=== PATIENT | male | born 1945 | race Caucasian/White ===

== ENCOUNTER 2021-05-13 17:41 | Emergency (ER) | payer OTHER, MEDICARE, SELFPAY ==
[2021-05-13 17:53] VITALS: BP 169/88; PULSE 88; RESP 18; TEMP 37.1; O2SAT 87; BMI 30.8
--- NOTE | 2021-05-13 18:13 | W.ED.SOB ---
HPI - SOB/Dyspnea General: Chief Complaint: Shortness of Breath/Dyspnea Stated Complaint: LOW 02 (88%), SENT BY PCP Time Seen by Provider: 05/13/21 18:13 History of Present Illness: HPI Narrative: Mr. Leiva is a 75-year-old gentleman with history of hypertension and hyperlipidemia who presents to the emergency department due to shortness of breath and generalized malaise. He likely had Covid approximately 2 years and over the past year has had intermittent episodes of wheezing. 2 weeks ago he had recurrence of symptoms with loss of smell, otherwise typical symptoms including shortness of breath, cough, malaise, and generalized decreased activity. Cough makes it difficult to sleep at night and at times he has to sleep propped up on pillows to prevent cough however he denies peripheral edema. He felt worse until 7 to 10 days ago and then improved however had worse again over the past day. He notes shortness of breath which is moderate in intensity and worse with exertion. Other symptoms continue. No other specific changes in health, exacerbating, or relieving factors identified. Of note the patient did use ivermectin for 3 days at onset of symptoms. Review of Systems General: Reports: 10 or more systems reviewed and unremarkable except in HPI and below PFSH ED PFSH: Medical History Hypoxia Social History Smoking and tobacco status: former smoker Physical Exam Narrative: EXAM NARRATIVE: GENERAL/CONSTITUTIONAL -ill-appearing Eyes - PERRL, no conjunctival injection ENMT - Atraumatic external nose and ears. Moist mucous membranes NECK - supple. trachea midline CARDIOVASCULAR - regular rate and rhythm. Normal peripheral perfusion RESPIRATORY -coarse to auscultation bilaterally. Increased work of breathing which increases with tachypnea and accessory muscle use when not on supplemental oxygen. ABDOMEN/GI - Nontender/Nondistended. No tenderness to percussion or evidence of peritonitis MSK - Extremities without obvious deformity or tenderness to palpation SKIN - Warm, Dry NEURO - alert and appropriately oriented. Moves all extremities equally. Course ED course: - Patient was seen and evaluated by me at bedside - Patient placed on cardiac monitors, IV access obtained - Initial evaluation notable for somewhat ill appearance as noted above -Symptom treatment ordered - Labs notable for mild leukocytosis. Metabolic panel with likely evidence of mild dehydration. Procalcitonin is negative. - Imaging notable for nonspecific scattered interstitial densities likely representing based on my interpretation infection - Upon serial reexamination after treatment the patient was mildly improved. He qualified for home oxygen - Based on patient history, evaluation, labs, and imaging as interpreted the most likely cause of the patient's condition is over 19 or other viral pneumonia with new hypoxemia, will send send out for PCR given likely false negative rapid test - The results of ED evaluation were discussed with the patient including prescriptions and/or symptomatic cares (if applicable) including appropriate and responsible use, followup plan, and return precautions. The patient verbalized understanding and felt safe for discharge. - Patient discharged in satisfactory condition. Vital Signs: Vital signs: Vital Signs Temperature 98.7 F 05/13/21 17:53 Pulse Rate 88 05/13/21 22:55 Respiratory Rate 18 05/13/21 17:53 Blood Pressure 169/88 05/13/21 17:53 Pulse Oximetry 91 05/13/21 22:55 MDM - SOB/Dyspnea Medical Records: Attestation: I reviewed the patient's medical records. Lab Data: Attestation: I reviewed the patient's lab results. Labs: Lab Results 05/13/21 05/13/21 05/13/21 18:43 18:43 18:43 WBC 11.3 10^3/uL H 10 ^3/uL (4.0-10.0) RBC 4.89 10^6/uL 10^6 /uL (4.1-5.3) Hgb 13.7 g/dL g/dL (11.7-16.6) Hct 41.3 % L % (42.0-52.0) MCV 84.5 fl fl (80-94) MCH 28.0 pg pg (28.0-34.0) MCHC 33.2 g/dL g/dL (30.0-36.0) RDW 13.1 % % (12.1-15.1) Plt Count 273 10^3/cmm 10^3 /cmm (130-400) MPV 10.3 fL fL (7.4-10.4) Neut % (Auto) 76.8 % % Lymph % (Auto) 8.9 % % [place] % (Auto) 11.8 % % Eos % (Auto) 1.0 % % Baso % (Auto) 0.2 % % Neut # (Auto) 8.70 10^3/uL H 10 ^3/uL (1.8-7.7) Lymph # (Auto) 1.0 10^3/uL 10^3/ uL (0.8-4.8) [place] # (Auto) 1.3 10^3/uL H 10^ 3/uL (0.2-0.9) Eos # (Auto) 0.1 10^3/uL 10^3/ uL (0.0-0.8) Baso # (Auto) 0.0 10^3/uL 10^3/ uL (0.0-0.1) Nucleated RBC % (a uto) 0 % % Nucleated RBCs # 0.0 /100WBC /100W BC Sodium 142 mmol/L mmol/L (136-145) Potassium 4.0 mmol/L mmol/L (3.5-5.1) Chloride 104 mmol/L mmol/L (98-107) Carbon Dioxide 21 mmol/L L mmol/ L (22-29) Anion Gap 21.0 H (5-19) BUN 10 mg/dL mg/dL (8-23) Creatinine 0.6 mg/dL L mg/dL (0.7-1.2) GFR Calculation Not Reportable Glucose 94 mg/dL mg/dL (65-115) Calculated Osmolal ity 293 mOsm/kg mOsm/ kg (285-295) Lactic Acid Calcium 8.2 mg/dL L mg/dL (8.5-10.5) Magnesium 2.0 mg/dL mg/dL (1.7-2.3) Total Bilirubin 0.4 mg/dL mg/dL (0.15-1.2) AST 24 U/L U/L (0-40) ALT 18 U/L U/L (0-41) Alkaline Phosphata se 104 IU/L IU/L (40-130) C-Reactive Protein 117.8 mg/L H mg/L (0.0-4.9) NT-Pro-B Natriuret Pep 324 pg/mL pg/mL (0-450) Total Protein 7.5 g/dL g/dL (6.6-8.7) Albumin 3.3 g/dL L g/dL (3.5-5.2) Globulin 4.2 g/dL g/dL (1.3-4.6) Procalcitonin 0.06 ng/mL ng/mL (0-0.5) Coronavirus 229E ( PCR) SARS-CoV-2 (PCR) SARS-CoV-2 Ag (Rap id) Negative (Negative) 05/13/21 05/13/21 19:22 22:50 WBC RBC Hgb Hct MCV MCH MCHC RDW Plt Count MPV Neut % (Auto) Lymph % (Auto) [place] % (Auto) Eos % (Auto) Baso % (Auto) Neut # (Auto) Lymph # (Auto) [place] # (Auto) Eos # (Auto) Baso # (Auto) Nucleated RBC % (a uto) Nucleated RBCs # Sodium Potassium Chloride Carbon Dioxide Anion Gap BUN Creatinine GFR Calculation Glucose Calculated Osmolal ity Lactic Acid 0.9 mmol/L mmol/L (0.5-2.2) Calcium Magnesium Total Bilirubin AST ALT Alkaline Phosphata se C-Reactive Protein NT-Pro-B Natriuret Pep Total Protein Albumin Globulin Procalcitonin Coronavirus 229E ( PCR) Not detected (NOT DETECT) SARS-CoV-2 (PCR) Not detected (NOT DETECT) SARS-CoV-2 Ag (Rap id) EKG Data^: EKG 2: Attestation: I personally reviewed and interpreted this EKG as follows: EKG Interpretation Date: 05/13/21 EKG interpretation time: 18:53 Interpretation: Twelve-lead EKG shows an irregular rhythm at a rate of 89. No NM interval, QRS duration 86, QTc 398. Normal axis. Interpretation: Sinus rhythm. Nonspecific ST segment abnormality Discharge Plan Discharge Patient Disposition: Home Clinical Impression: Pneumonia, viral, Hypoxia, COVID-19 Condition: Stable Prescriptions: No Action No Known Home Medications RF: 0 Discharge Orders: Discharge ED (Routine); Ordered 05/13/21 Ordered By: Cash Garcia Other Ambulatory Orders: DME: Oxygen (Order) Location: None Selected Ordered By: Cash Garcia DME: Oxygen (Order) Location: None Selected Ordered By: Cash Garcia Referrals: Arnold Elliott DO [Primary Care Provider] - Discharge Diet: Usual diet Discharge Activity: Increase activity as tolerated Patient Instructions: Using Oxygen at Home (ED), COVID-19 (Coronavirus Disease 2019) (ED) Activity Restrictions/Additional Instructions: Thank you for visiting the emergency department. You were seen and evaluated for shortness of breath, cough, and other associated symptoms. The exact cause of your symptoms is unclear though is likely related to COVID-19 or other viral pneumonia. I would expect that you will begin to improve in the next few days. You will be sent home with home oxygen. As discussed, please use pulse oximeter and return if you feel significant worsening or, despite home oxygen, your oxygen levels are less than 90%. Please follow-up with your primary care provider. Return to the emergency department for anything that you are concerned about and feel needs emergency department evaluation. Coding Level of Care Code ED Client Support Manager for Omar Roth
--- NOTE | 2021-05-13 18:14 | ECG_ITS ---
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 Measurements Intervals [place] Rate: 89 P: AL: QRS: 33 QRSD: 86 T: 72 QT: 351 QTc: 429 Interpretive Statements Sinus rhythm No previous ECG available for comparison Electronically Signed On 05-14-2021 9:08:13 ASSIGNMENT OFFICER by Rajan Perez M.D. [id number]
--- NOTE | 2021-05-13 18:14 | XRR_ITS ---
PROCEDURE INFORMATION: Exam: XR Chest Exam date and time: 05/13/2021 6:14 PM Age: 75 years old Clinical indication: Shortness of breath; Additional info: SOB, hypoxia TECHNIQUE: Imaging protocol: XR of the chest. Views: 1 view. COMPARISON: CR Chest 1 [place] [id number] 12/28/2017 12:10 PM FINDINGS: Lungs: There are scattered interstitial densities in the periphery of both lungs new since prior examination. Pleural spaces: Unremarkable. No pleural effusion. No pneumothorax. Heart/Mediastinum: Unremarkable. No cardiomegaly. Bones/joints: Unremarkable. XR/XR chest 1V portable [id number] IMPRESSION: 1. Nonspecific scattered interstitial densities in both lungs new since prior.. 2. Otherwise negative chest examination
[2021-05-13 19:08] LABS: Basophils % 0.2 %; Eosinophils # 0.1 10^3/uL (0.0-0.8); Hematocrit 41.3 % (42.0-52.0); Hemoglobin 13.7 g/dL (11.7-16.6); Lymphocytes % 8.9 %; Mean Corpuscular HGB Conc 33.2 g/dL (30.0-36.0); Mean Corpuscular Volume 84.5 fl (80-94); Mean Platelet Volume 10.3 fL (7.4-10.4); Monocytes # 1.3 10^3/uL (0.2-0.9); Monocytes % 11.8 %; Neutrophils % 76.8 %; Nucleated Red Blood Cells % 0 %; Platelet Count 273 10^3/cmm (130-400); Red Blood Count 4.89 10^6/uL (4.1-5.3); Red Cell Distribution Width 13.1 % (12.1-15.1); White Blood Count 11.3 10^3/uL (4.0-10.0)
[2021-05-13 19:26] LABS: SARS Covid-2 Antigen Negative (Negative)
[2021-05-13 19:38] LABS: NT Pro B Type Natriuretic Pept 324 pg/mL (0-450); Procalcitonin 0.06 ng/mL (0-0.5)
[2021-05-13 19:49] LABS: Alanine Aminotransferase 18 U/L (0-41); Albumin Level 3.3 g/dL (3.5-5.2); Alkaline Phosphatase 104 IU/L (40-130); Aspartate Amino Transferase 24 U/L (0-40); Blood Urea Nitrogen 10 mg/dL (8-23); C Reactive Protein 117.8 mg/L (0.0-4.9); Calcium 8.2 mg/dL (8.5-10.5); Carbon Dioxide 21 mmol/L (22-29); Chloride 104 mmol/L (98-107); Globulin 4.2 g/dL (1.3-4.6); Glucose 94 mg/dL (65-115); Osmolality Calculated 293 mOsm/kg (285-295); Sodium 142 mmol/L (136-145); Total Bilirubin 0.4 mg/dL (0.15-1.2); Total Protein 7.5 g/dL (6.6-8.7)
[2021-05-13 19:50] LABS: Lactic Sepsis W/Reflex 0.9 mmol/L (0.5-2.2)
[2021-05-13 21:15] VITALS: O2SAT 83; O2SAT 87; O2SAT 90
[2021-05-13 22:55] VITALS: PULSE 88; O2SAT 91
[2021-05-14 00:36] LABS: Adenovirus Not Detected (NOT DETECT); Chlamydia Pneumoniae Not Detected (NOT DETECT); Coronavirus 229E,HKU1,NL63,OC4 Not Detected (NOT DETECT); Human Metapneumovirus Not Detected (NOT DETECT); Human Rhinovirus/Enterovirus Not Detected (NOT DETECT); Influenza A Not Detected (NOT DETECT); Influenza A H1 Not Detected (NOT DETECT); Influenza A H1-2009 Not Detected (NOT DETECT); Influenza A H3 Not Detected (NOT DETECT); Influenza B Not Detected (NOT DETECT); Mycoplasma Pneumoniae Not Detected (NOT DETECT); Parainfluenza Virus Type 1 Not Detected (NOT DETECT); Parainfluenza Virus Type 2 Not Detected (NOT DETECT); Parainfluenza Virus Type 3 Not Detected (NOT DETECT); Parainfluenza Virus Type 4 Not Detected (NOT DETECT); Respiratory Syncytial Virus A Not Detected (NOT DETECT); Respiratory Syncytial Virus B Not Detected (NOT DETECT); SARS-COV-2 Not Detected (NOT DETECT)
== END 2021-05-13 22:59 | disposition home or self-care (01) ==
PROVIDERS: Emergency Provider Emergency Medicine; PCP Emergency Medicine Emergency Medical Services
DX: U07.1 COVID-19 (principal); J12.82 Pneumonia due to coronavirus disease 2019; R09.02 Hypoxemia; Z87.891 Personal history of nicotine dependence
CPT/HCPCS: 71045; 80053; 83605; 83735; 83880; 84145; 85025; 86140; 87426; 87635; 93005; 99283

== ENCOUNTER 2021-08-04 20:00 | Outpatient (CLI) | payer OTHER, SELFPAY | END 2021-08-04 20:01 | disposition home or self-care (01) | LOC: SLEEP 08-05 07:56 | PROVIDERS: PCP Emergency Medicine Emergency Medical Services; Visit Provider Emergency Medicine Emergency Medical Services | DX: G47.33 Obstructive sleep apnea (adult) (pediatric) (principal); R09.02 Hypoxemia | CPT/HCPCS: 95810 ==

== ENCOUNTER 2021-09-30 20:00 | Outpatient (CLI) | payer OTHER, SELFPAY | END 2021-09-30 20:01 | disposition home or self-care (01) | LOC: SLEEP 10-01 05:41 | PROVIDERS: PCP Emergency Medicine Emergency Medical Services; Visit Provider Emergency Medicine Emergency Medical Services | DX: G47.33 Obstructive sleep apnea (adult) (pediatric) (principal) | CPT/HCPCS: 95811 ==

== ENCOUNTER 2021-12-08 07:40 | Outpatient (CLI) | payer OTHER, SELFPAY ==
--- NOTE | 2021-12-08 07:47 | USCV_ITS ---
Prudencio Leiva Age: 75 Gender: M : 1945 Exam Date: 12/08/2021 08:04 Ordering Phys: Arnold Elliott DO Technologist: CHRISTINA Exam Location: [facility] [place] Indication: AAA Screening HISTORY: Diameter (cm) AP x Transverse x Length Velocity (cm/s) Waveform Prox Aorta: 1.17 x 2.18 x 40.80 Mid Aorta: 1.18 x 1.20 x 46.70 Distal Aorta: 1.16 x 1.35 x 43.00 Right Iliac Prox: 0.94 x 1.48 x 53.20 Left Iliac Prox: 1.19 x 1.48 x 54.80 Stent Prox Landing x x Aneurysmal Sac Max x x Lt Lat Sac Dim Rt Lat Sac Dim Stent Dist Landing x x Right Iliac Stent x x Left Iliac Stent x x Right Renal Art Left Renal Art FINDINGS: TDS due to patient habitus CONCLUSIONS No evidence of abdominal aortic or bilateral iliac aneurysm. Alan Scott MD (Electronically Signed) Final Date: 08 December 2021 14:28 S
== END 2021-12-08 07:41 | disposition home or self-care (01) ==
PROVIDERS: PCP Emergency Medicine Emergency Medical Services; Visit Provider Emergency Medicine Emergency Medical Services
DX: Z01.89 Encounter for other specified special examinations (principal)
CPT/HCPCS: 76706

== ENCOUNTER 2022-09-30 20:36 | Emergency (ER) | payer OTHER, SELFPAY ==
[2022-09-30] VITALS (13 sets, daily range): BP systolic 108–167; BP diastolic 68–85; PULSE 92–106; RESP 18–29; TEMP 37.4–38.8; O2SAT 91–95; BMI 31.9
--- NOTE | 2022-09-30 20:39 | XRR_ITS ---
PROCEDURE INFORMATION: Exam: XR Chest Exam date and time: 09/30/2022 8:53 PM Age: 76 years old Clinical indication: Shortness of breath; Additional info: SOB TECHNIQUE: Imaging protocol: Radiologic exam of the chest. Views: 1 view. COMPARISON: CR (CHEST, ) 05/13/2021 6:26 PM FINDINGS: Lungs: Visualized portions of the lungs are clear. Pleural spaces: Unremarkable. No pleural effusion. No pneumothorax. Heart/Mediastinum: Heart is within normal limits of size. Bones/joints: There is mild scoliosis of the thoracic spine concave to the left. XR/XR chest 1V portable [id number] IMPRESSION: No acute infiltrate.
--- NOTE | 2022-09-30 20:49 | ECG_ITS ---
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 Measurements Intervals [place] Rate: 98 P: 57 VT: 153 QRS: 40 QRSD: 90 T: 51 QT: 297 QTc: 380 Interpretive Statements SINUS RHYTHM Compared to ECG 05/13/2021 18:46:27 No significant changes Electronically Signed On 10-01-2022 11:58:48 CDT by Rajan Perez M.D. [id number]
[2022-09-30] MEDS: acetaminophen 500 mg Tablet 1000 MG PO (21:11)
[2022-09-30 21:12] LABS: Basophils % 0.3 %; Hematocrit 51.9 % (42.0-52.0); Hemoglobin 16.7 g/dL (11.7-16.6); Lymphocytes # 0.5 10^3/uL (0.8-4.8); Lymphocytes % 13.8 %; Mean Corpuscular HGB Conc 32.2 g/dL (30.0-36.0); Mean Corpuscular Volume 87.1 fl (80-94); Mean Platelet Volume 11.1 fL (7.4-10.4); Monocytes # 0.3 10^3/uL (0.2-0.9); Monocytes % 8.6 %; Neutrophils % 76.7 %; Nucleated Red Blood Cells % 0 %; Platelet Count 109 10^3/cmm (130-400); Red Blood Count 5.96 10^6/uL (4.1-5.3); Red Cell Distribution Width 13.6 % (12.1-15.1); White Blood Count 3.3 10^3/uL (4.0-10.0)
--- NOTE | 2022-09-30 21:17 | ED_ITS ---
HPI - SOB/Dyspnea General: Chief Complaint: Shortness of Breath/Dyspnea Stated Complaint: Fever\Low O2 Aches Time Seen by Provider: 09/30/22 20:37 Source: patient Mode of arrival: ambulatory Limitations: no limitations History of Present Illness: HPI Narrative: 76-year-old male states he been having some dyspnea along with a fever that started today does have a fever here one 1.5. He states that he worked out in his garden on Tuesday felt like he had a little heat exhaustion state he felt better throughout the week but states over the last 2 days he is developed these body aches and then fever today with shortness of breath and a mild cough he has had some Sick contacts he is in no distress here. Denies any pain anywhere. Associated symptoms: Reports fever(s); Deny abdominal pain, chest pain, nausea or vomiting Review of Systems Const: Reports: fever(s), chills and body aches Eyes: Denies: blurry vision or eye discomfort ENMT: Denies: throat pain or dental pain Card: Denies: chest pain Resp: Reports: dyspnea and non-productive cough GI: Denies: abdominal pain, nausea, vomiting or diarrhea : Denies: dysuria Musc: Denies: neck pain or back pain Skin/Breast: Denies: rash Neuro: Denies: headache(s) PFSH ED PFSH: Medical History Hypoxia Social History Smoking and tobacco status: former smoker Physical Exam Const: COMMON NORMALS: patient oriented x3 HENMT: COMMON NORMALS: normocephalic and atraumatic HEAD & SCALP: normocephalic and atraumatic Eye: COMMON NORMALS: conjunctivae normal CONJUNCTIVA: Yes conjunctivae normal Neck/C-Spine: COMMON NORMALS: full ROM and supple Chest: COMMONS NORMALS: normal inspection of the chest and normal palpation of entire chest wall Resp: COMMON NORMALS: normal respiratory effort, No retractions, No use of accessory muscles and clear to auscultation bilaterally AUSCULTATION: clear to auscultation bilaterally Cardio: COMMON NORMALS: regular rate, regular rhythm and No murmurs present (Cardio) RATE: regular rate RHYTHM: regular rhythm GI: COMMON NORMALS: Normal to inspection, nondistended, normoactive bowel sounds present, Soft to palpation, non-tender and no masses PALPATION: Yes Soft to palpation Extremity: COMMON NORMALS: normal to inspection and full ROM Neuro: COMMON NORMALS: patient oriented x3, moves all extremities and no focal motor deficits Psych: COMMON NORMALS: mental status grossly normal, Normal thought process present and cooperative THOUGHT PROCESS: Normal thought process present Skin: COMMON NORMALS: no rashes or lesions noted and no wounds GENERAL SKIN EXAM: no rashes or lesions noted Course Vital Signs: Vital signs: Vital Signs Temperature 101.8 F H 09/30/22 20:50 Pulse Rate 98 09/30/22 21:35 Respiratory Rate 26 H 09/30/22 21:35 Blood Pressure 145/77 09/30/22 21:35 Pulse Oximetry 92 09/30/22 21:35 Oxygen Delivery Me thod Room Air 09/30/22 20:50 MDM - SOB/Dyspnea Medical Decision Making Patient presents here with cough fever he did test positive for COVID and his symptoms are fairly classic his pulse ox here is benign to 93% he has had no dys pnea we will start him on Paxil bid he is to return if he has any hypoxia or worsening shortness of breath he understands agrees to plan. Medical Records I reviewed the patient's medical records. Lab Data I reviewed the patient's lab results. 09/30/22 20:56 09/30/22 20:56 Labs/Radiology: Laboratory Results WBC 3.3 10^3/uL (4.0-10.0) L 09/30/22 20:56 RBC 5.96 10^6/uL (4.1-5.3) H 09/30/22 20:56 Hgb 16.7 g/dL (11.7-16.6) H 09/30/22 20:56 Hct 51.9 % (42.0-52.0) 09/30/22 20:56 MCV 87.1 fl (80-94) 09/30/22 20:56 MCH 28.0 pg (28.0-34.0) 09/30/22 20:56 MCHC 32.2 g/dL (30.0-36.0) 09/30/22 20:56 RDW 13.6 % (12.1-15.1) 09/30/22 20:56 Plt Count 109 10^3/cmm (130-400) L 09/30/22 20:56 MPV 11.1 fL (7.4-10.4) H 09/30/22 20:56 Neut % (Auto) 76.7 % 09/30/22 20:56 Lymph % (Auto) 13.8 % 09/30/22 20:56 [place] % (Auto) 8.6 % 09/30/22 20:56 Eos % (Auto) 0.0 % 09/30/22 20:56 Baso % (Auto) 0.3 % 09/30/22 20:56 Neut # (Auto) 2.50 10^3/uL (1.8-7.7) 09/30/22 20:56 Lymph # (Auto) 0.5 10^3/uL (0.8-4.8) L 09/30/22 20:56 [place] # (Auto) 0.3 10^3/uL (0.2-0.9) 09/30/22 20:56 Eos # (Auto) 0.0 10^3/uL (0.0-0.8) 09/30/22 20:56 Baso # (Auto) 0.0 10^3/uL (0.0-0.1) 09/30/22 20:56 Nucleated RBC % (auto) 0 % 09/30/22 20:56 Nucleated RBCs # 0.0 /100WBC 09/30/22 20:56 Sodium 137 mmol/L (136-145) 09/30/22 20:56 Potassium 4.2 mmol/L (3.5-5.1) 09/30/22 20:56 Chloride 97 mmol/L (98-107) L 09/30/22 20:56 Carbon Dioxide 28 mmol/L (22-29) 09/30/22 20:56 Anion Gap 16.2 (5-19) 09/30/22 20:56 BUN 18 mg/dL (8-23) 09/30/22 20:56 Creatinine 1.2 mg/dL (0.7-1.2) 09/30/22 20:56 GFR Calculation Not Reportable 09/30/22 20:56 Glucose 105 mg/dL (65-115) 09/30/22 20:56 Calculated Osmolality 286 mOsm/kg (285-295) 09/30/22 20:56 Lactic Acid 0.8 mmol/L (0.5-2.2) 09/30/22 20:56 Calcium 8.7 mg/dL (8.5-10.5) 09/30/22 20:56 Total Bilirubin 0.2 mg/dL (0.15-1.2) 09/30/22 20:56 AST 54 U/L (0-40) H 09/30/22 20:56 ALT 41 U/L (0-41) 09/30/22 20:56 Alkaline Phosphatase 104 U/L (40-130) 09/30/22 20:56 Creatine Kinase 135 U/L (39-308) 09/30/22 20:56 NT-Pro-B Natriuret Pep 36 pg/mL (0-450) 09/30/22 20:56 Total Protein 7.6 g/dL (6.6-8.7) 09/30/22 20:56 Albumin 4.1 g/dL (3.5-5.2) 09/30/22 20:56 Globulin 3.5 g/dL (1.3-4.6) 09/30/22 20:56 Influenza Type A Ag negative (Negative) 09/30/22 20:56 Influenza Type B Ag negative (Negative) 09/30/22 20:56 SARS-CoV-2 Ag (Rapid) Positive (Negative) H 09/30/22 20:56 EKG Data EKG 1: I personally reviewed and interpreted this EKG as follows: EKG Interpretation Date: 09/30/22 EKG interpretation time: 20:49 Interpretation: nsr hr [address] or t wave abnormalities qrs 90 qtc 353 Discharge Plan Discharge Patient Disposition: Home Clinical Impression: COVID-19 Condition: Stable Prescriptions: New Paxlovid (EUA) 300 mg (150 mg x 2)-100 mg tablets,dose pack See Rx Instructions .ROUTE .COMPLEX Qty: 30 0RF Rx Instructions: take TWO 150 mg tablets of nirmatrelvir with ONE 100 mg tablet of ritonavir twice daily for 5 days Discharge Orders: Discharge ED (Routine); Ordered 09/30/22 Ordered By: Areli Chatman Referrals: Arnold Elliott, DO [Primary Care Provider] - 1-3 days Discharge Diet: Advance as tolerated Discharge Activity: Resume usual activity Patient Instructions: COVID-19 (Coronavirus Disease 2019) (ED) Coding Level of Care Code ED Water Resources Project Manager for Omar Roth
[2022-09-30 21:27] LABS: Influenza A by IFA negative (Negative); Influenza B by IFA negative (Negative)
[2022-09-30 21:30] LABS: Lactic Sepsis W/Reflex 0.8 mmol/L (0.5-2.2); SARS Covid-2 Antigen Positive (Negative)
[2022-09-30 21:40] LABS: Alanine Aminotransferase 41 U/L (0-41); Albumin Level 4.1 g/dL (3.5-5.2); Alkaline Phosphatase 104 U/L (40-130); Anion Gap 16.2 (5-19); Aspartate Amino Transferase 54 U/L (0-40); Blood Urea Nitrogen 18 mg/dL (8-23); Calcium 8.7 mg/dL (8.5-10.5); Carbon Dioxide 28 mmol/L (22-29); Chloride 97 mmol/L (98-107); Creatine Phosphokinase 135 U/L (39-308); Globulin 3.5 g/dL (1.3-4.6); Glucose 105 mg/dL (65-115); NT Pro B Type Natriuretic Pept 36 pg/mL (0-450); Osmolality Calculated 286 mOsm/kg (285-295); Potassium 4.2 mmol/L (3.5-5.1); Sodium 137 mmol/L (136-145); Total Bilirubin 0.2 mg/dL (0.15-1.2); Total Protein 7.6 g/dL (6.6-8.7)
[2022-09-30] MEDS: dexamethasone 10 mg/mL INJ IVP (21:40)
[2022-09-30 21:45] LABS: Slide Review Slide Review Perform
[2022-09-30] MEDS: ibuprofen 800 mg tablet PO (22:05)
[2022-09-30] MEDS: albuterol 8 gm MDI 2 PUFF INHALATION (22:14)
== END 2022-09-30 22:31 | disposition home or self-care (01) ==
PROVIDERS: Emergency Provider Emergency Medicine; PCP Emergency Medicine Emergency Medical Services
DX: U07.1 COVID-19 (principal); Z87.891 Personal history of nicotine dependence
CPT/HCPCS: 36415; 71045; 80053; 82550; 83605; 83880; 85025; 87040; 87426; 87804; 93005; 94640; 96374; 99285; J1100; J3535

== ENCOUNTER 2023-02-01 08:32 | Outpatient (CLI) | payer OTHER, SELFPAY ==
--- NOTE | 2023-02-01 08:38 | USCV_ITS ---
Prudencio Leiva Age: 77 Gender: M : 1945 Exam Date: 02/01/2023 08:49 Ordering Phys: Arnold Elliott DO Technologist: [place] [facility] [place]: murmur BP: 135 / 80 HR: 80 Rhythm: Sinus Technical Quality: Adequate MEASUREMENTS (Male / Female) Normal Values 2D ECHO LV Diastolic Diameter PLAX 4.5 cm 4.2 - 5.9 / 3.9 - 5.3 cm LV Systolic Diameter PLAX 2.4 cm IVS Diastolic Thickness 1.1 cm 0.6 - 1.0 / 0.6 - 0.9 cm IVS Systolic Thickness 1.5 cm LVPW Diastolic Thickness 1.3 cm 0.6 - 1.0 / 0.6 - 0.9 cm LVPW Systolic Thickness 1.5 cm LV Ejection Fraction 2D Teich 78.6 % LV Ejection Fraction MOD 2C 77.3 % LV Ejection Fraction 2C AL 76.0 % IVC Diameter 2.0 cm M-MODE MV E Point Septal Separation 1.7 cm DOPPLER AV Peak Velocity 202.0 cm/s LVOT Peak Velocity 106.0 cm/s MV Area PHT 3.9 cm squared Mitral E to A Ratio 0.9 MV E' Velocity 74.3 cm/s Mitral E to LV E' Septal Ratio 10.3 TR Peak Velocity 157.5 cm/s TR Peak Gradient 9.9 mmHg TV Peak E Velocity 62.0 cm/s Right Atrial Pressure 3.0 mmHg Pulmonary Artery Systolic Pressu 12.9 mmHg FINDINGS Left Ventricle Normal left ventricular size, systolic function and wall thickness, with no regional wall motion abnormalities. Left ventricular ejection fraction is estimated at 65 %. Normal diastolic function. Right Ventricle Normal right ventricular size and systolic function. Right ventricular systolic pressure 12.9 mmHg. Right Atrium Normal right atrial size. Left Atrium Normal left atrial size. Mitral Valve Mildly thickened mitral valve. No mitral valve stenosis. Trace mitral valve regurgitation. Aortic Valve Aortic valve not well visualized. Moderately thickened and calcified aortic valve. Aortic valve sclerosis without stenosis. Trace to mild aortic valve regurgitation. Tricuspid Valve Structurally normal tricuspid valve. Pulmonic Valve Structurally normal pulmonic valve. No pulmonary valve stenosis. No pulmonary valve regurgitation. Pericardium No pericardial effusion. Aorta Normal size aortic root and proximal ascending aorta. IVC Inferior vena cava not visualized. CONCLUSIONS 1. Normal left ventricular size, systolic function and wall thickness, with no regional wall motion abnormalities. Left ventricular ejection fraction is estimated at 65 %. Normal diastolic function. 2. Normal right ventricular size and systolic function. 3. Aortic valve sclerosis without stenosis. Trace to mild aortic valve regurgitation. 4. No prior similar studies to compare. Jyoti Douglas MD (Electronically Signed) Final Date: 01 February 2023 14:14 S
== END 2023-02-01 08:33 | disposition home or self-care (01) ==
LOC: RAD 08:34
PROVIDERS: PCP Emergency Medicine Emergency Medical Services; Visit Provider Emergency Medicine Emergency Medical Services
DX: R01.1 Cardiac murmur, unspecified (principal); I35.8 Other nonrheumatic aortic valve disorders
CPT/HCPCS: 93306